=== PATIENT | male | born 1980 | race Caucasian/White ===

== ENCOUNTER 2021-04-10 08:00 | Outpatient (RCR) | payer OTHER, SELFPAY ==
--- NOTE | 2021-03-02 09:20 | HP.PTEVAL_ITS ---
Patient's Visit Information MALATHI COX is a 40 year old M referred to Physical Therapy by Dr. Tucker Denny MD with a diagnosis of R shoulder biceps tendinitis. Date of Evaluation: 02/27/21 Physical Therapist: Chicho Escobar DPT - Visit Plan Frequency: 1x/Week Duration: 4 Weeks Plan: Start with restoring non painful motion to full throughout. Add in scapular and scarlett scapular strengthening. Build HEP. Pt. to be seen x1 per week with focus on progressing HEP as tolerated. - Subjective Pt. is here today for his initial evaluation with diagnosis of R biceps tendonitis, R shoulder AC OA and shoulder impingement. Pt. reports having pain f or a few years, but has been progressively getting worse over the past 5-6 months. He reports no mech of injury, but does a lot of over head lifting, heavy at times and feels like the frequent over head activities has caused some of his symptoms. He reports no N/T. He does have pain at anterior bicep that does radiate down his arm and into his neck at times. He reports having pain after working for the day. He did get a recent injection last week with a marked amount of reduction in symptoms. He is hopeful to increase his tolerance to all of work and recreational activities. 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 He is to trial PT and if not better go back to physician. - Pain R anterior shoulder Pain Intensity (Out of 10): 2 Pain Intensity Range: 1, 9 - Objective POSTURE: Pt. has slight FH and slight anterior rotation shoulders. Normal shoulder heights. PALPATION: Pt. has tenderness at anterior biceps, and slight pain at at sub acromial space. NEURO: Pt. has normal sensation and normal DTR of bilateral UEs. ROM: LUE: elbow normal, full; shoulder: flexion 175deg, abd 175deg, functional ER C7, functional IR T10. RUE: elbow and wrist full no issues. Shoulder: flexion 170deg increased pain at ~90deg, abd 165deg increased pain at ~90deg of abd; functional ER C4 increase NW, functional IR L4 increase NW. MMT: LUE: 5/5 throughout; RUE: elbow- 5/5 throughout; shoulder- flexion 5- /5, abd 5-/5, ext 5/5, ER 4/5, IR 5-/5. Increased pain with all movements except ext. - Special Tests R Shoulder Drop Sign - IS Test: Negative R Shoulder Empty Can - SS: Positive R Shoulder Belly Press - SupScap: Negative R Shoulder Neer - Impingement: Positive R Shoulder Bashir Lewis - Impingement: Positive R Shoulder Biceps Load Test - Labrum: Positive R Shoulder Speeds Test - Labrum/Biceps: Positive - Balance/Special Test Scores Quick DASH Score: 47.7250 - Goals Goal 1:: LTG: Pt. to be I with HEP for shoulder ROM and scapular/scarlett scapular strengthening. Goal Time Frame: 4-6 Weeks Goal 2:: STG: pt. to have increased R shoulder ROM to full without increase in symptoms. Goal Time Frame: 2-4 Weeks Goal 3:: STG: Pt. to sleep throughout the night without increase in symptoms. Goal Time Frame: 2 Weeks Goal 4:: LTG: Pt. to have increased R shoulder strength to 5/5 throughout without increase in symptoms. Goal Time Frame: 4-6 Weeks - Rehabilitation Potential Physical Therapy Diagnosis: Pt. has signs and symptoms consistent R shoulder biceps tendinitis. He has subsequent hypomobility, weakness and pain. Pt. is doing better after injection, but would benefit from PT to restore full motion and add in scarlett scapular strengthening to reduce stress to biceps tendon. Rehabilitation Potential: Good - Anticipated Interventions Patient/Client Instruction: Educate patient on: Condition, Plan of Care, Risk Factors, Benefits of Fitness Program For the Purpose of:: To improve decision making, To facilitate caregiver knowledge, To improve self management, To prevent re-injury, To improve ability to perform tasks related to life management Therapeutic Exercise to Include: Power training, Body mechanics, Postural training, Passive ROM, Active ROM, Scapular Strength/Stabilization For the Purpose of:: To decrease pain, To increase ROM, To improve nutrient delivery to tissue, To increase oxygenation perfusion, To improve muscle performance and motor function, To improve ability to perform ADL's, To increase tolerance to activity/condition/position, To improve health of tissue, To decrease soft tissue restriction, To increase flexibility/ROM, To improve endurance Manual Therapy Techniques to Include: Mobilization, Passive ROM For the Purpose of:: To decrease pain, To decrease swelling/inflammation, To increase ROM IF ES: Yes Cryotherapy (ice pack, ice massage): Yes For the Purpose of:: To decrease pain, To decrease swelling/inflammation, To increase ROM, To improve nutrient delivery to tissue, To increase oxygenation perfusion Thank you for the opportunity to evaluate your patient. For Medicare and Medicare HMO plans, please review the plan of care and approve it. It will need to be FAXED BACK to us at [phone] for Medicare purposes. For Medicare only, by signing this I certify the plan of care. Please let me know if there are questions or concerns regarding this plan of care. Physician Signature: Date:
--- NOTE | 2021-04-10 09:16 | HP.PTREVAL_ITS ---
Dr. Tucker Denny MD, It has been my pleasure to treat MALATHI COX over the last 6 visits for R shoulder biceps tendinitis. Please see the progress note below for an update on the physical therapy plan of care! Subjective: Pt. reports I am having some better days, but I still have my bad ones.' He has been off work for about 6 days, (he has a 15 days on, 6 days off schedule) and has been doing a bit better. He reports being HEP compliant working on scapular, scarlett scapular and RTC strengthening. He reports being 40% better or so. Objective/Function: Pt. has good R shoulder ROM into flexion, abd, scaption. He does have increased active functional ER/IR motions (behind his back and head). Passively he had good motion. He presents with good strength today, R shoulder: flexion 5/5, abd 5-/5, ER 4+/5 increase NW, IR 4+/5, increase NW, ext 5/5. He is tender to palpation and anterior supra scapularis insertion and biceps tendon in groove. Her has increased symptoms with empty can and with speeds testing. No pain with Horn Blower's testing. He has been working ER strengthening, deltoid strengthening and scapular strengthening. He is still having pain after and during work. He is having difficulty sleeping as well. He is to follow up with his physician later this week to determine best course of action. He has made some mild gain, but is still having marked pain with most work and daily activities. Plan Plan: Pt. to follow up with physician to determine best course of action. He is to continue with HEP as given today. Balance/Gait/Functional tests - Balance/Special Test Scores Quick DASH Score: 43.1800 Goals Goal 1:: LTG: Pt. to be I with HEP for shoulder ROM and scapular/scarlett scapular strengthening. Goal Time Frame: 4-6 Weeks Goal Progress: Goal Met Goal 2:: STG: pt. to have increased R shoulder ROM to full without increase in symptoms. Goal Time Frame: 2-4 Weeks Goal Progress: Progressing Goal 3:: STG: Pt. to sleep throughout the night without increase in symptoms. Goal Time Frame: 2 Weeks Goal Progress: Not Progressing Goal 4:: LTG: Pt. to have increased R shoulder strength to 5/5 throughout without increase in symptoms. Goal Time Frame: 4-6 Weeks Goal Progress: Progressing Anticipated Interventions Patient/Client Instruction: Educate patient on: Condition, Plan of Care, Risk Factors, Benefits of Fitness Program For the Purpose of:: To improve decision making, To facilitate caregiver knowledge, To improve self management, To prevent re-injury, To improve ability to perform tasks related to life management Therapeutic Exercise to Include: Power training, Body mechanics, Postural t raining, Passive ROM, Active ROM, Scapular Strength/Stabilization For the Purpose of:: To decrease pain, To increase ROM, To improve nutrient delivery to tissue, To increase oxygenation perfusion, To improve muscle performance and motor function, To improve ability to perform ADL's, To increase tolerance to activity/condition/position, To improve health of tissue, To decre ase soft tissue restriction, To increase flexibility/ROM, To improve endurance Manual Therapy Techniques to Include: Mobilization, Passive ROM For the Purpose of:: To decrease pain, To decrease swelling/inflammation, To increase ROM IF ES: Yes Cryotherapy (ice pack, ice massage): Yes For the Purpose of:: To decrease pain, To decrease swelling/inflammation, To increase ROM, To improve nutrient delivery to tissue, To increase oxygenation perfusion Please do not hesitate to contact me at [phone] by phone or if you have questions or concerns regarding this new plan of care! Sincerely, Chicho Escobar DPT
== END 2021-04-10 19:00 | disposition home or self-care (01) ==
LOC: PT 08:00
PROVIDERS: Referring Provider Orthopaedic Surgery; Visit Provider Orthopaedic Surgery
DX: M75.21 Bicipital tendinitis, right shoulder (principal); M75.41 Impingement syndrome of right shoulder; M25.511 Pain in right shoulder; M19.011 Primary osteoarthritis, right shoulder
CPT/HCPCS: 97110; 97140; 97161; 97164

== ENCOUNTER 2021-08-09 05:00 | Emergency (ER) | payer OTHER, SELFPAY ==
[2021-08-09 05:01] VITALS: BP 140/91; PULSE 80; RESP 16; TEMP 36.3; O2SAT 99; BMI 30.1
--- NOTE | 2021-08-09 05:07 | CT_ITS ---
STUDY: CT ABDOMEN AND PELVIS WITHOUT CONTRAST REASON FOR EXAM: Male, 41 years old. Pain RADIATION DOSAGE (If Supplied By Facility): CTDIvol = ( 9.10 ) mGy, DLP = ( 550.42 ) mGycm TECHNIQUE: Transaxial 2.5 mm images were obtained from the dome of the diaphragm to the symphysis pubis without oral contrast, and without intravenous contrast. Sagittal and coronal images were reconstructed. This examination is limited for the evaluation of gastrointestinal, solid organs and vascular structures due to the lack of intravenous and oral contrast. Individualized dose optimization techniques were used for this CT. COMPARISON: None. FINDINGS: The visualized lung bases are unremarkable. The visualized portions of the heart are within normal limits. There is decreased attenuation of the liver consistent with steatosis. Normal gallbladder and extrahepatic biliary system. Normal spleen. Normal pancreas. Normal bilateral adrenal glands. Right greater than left perirenal stranding trace fluid. Minimal right proximal periureteral fluid with indistinct contour, remainder of the ureter is decompressed, there is minimal right caliectasis. The distal right ureter contains a tiny 1 -- 2 mm calculus approximately 1 cm superior to the UVJ. Normal visualized stomach. Normal small intestine. Normal colon. The appendix is visualized and appears normal. Minimal atherosclerosis of the distal abdominal aorta and proximal pelvic arteries.. Normal inferior vena cava. Normal retroperitoneum. Decompressed urinary bladder. Borderline sized prostate. There is a small umbilical and left inguinal hernia containing fat. Normal osseous structures. CT/Abdomen/Pelvis without Cont IMPRESSION: Tiny distal right ureteral calculus with minimal right caliectasis and indistinct proximal ureter. Bilateral perirenal stranding can be seen with acute or chronic renal pathology/previous inflammation or obstruction. Hepatic steatosis. There is no appendicitis, colitis, ascites, abscess, collection, perforation or obstruction. Electronically Signed: Kassandra Bueno MD at 5:49 EDT Reading Location ID and State: , Service support ,
--- NOTE | 2021-08-09 05:11 | EDS_ITS ---
HPI History of Present Illness Chief Complaint: Flank Pain Informant: patient and spouse/S.O. Narrative Narrative: Patient presents with right flank pain. About 2-1/2 days ago he had right posterior flank pain that was sharp. But it went away and has been good for couple days. Tonight he came back and has the right lower quadrant now. He has had some frequent urination and dark urine but no actual dysuria. When the pain was bad he has had nausea and dry heaves. Nothing really makes it better or worse. He has never had kidney stones but they do run in his family. Moving bowels has been normal. No fevers or chills. Of note, patient has allergy to codeine but it causes nausea only. He has had other pain meds without issues. PFSH PFSH Medical History no medical history Home Medications naproxen 500 mg tablet 500 mg PO BID #20 tabs 08/09/21 [Rx Last Taken Unknown] ondansetron 4 mg disintegrating tablet 4 mg PO Q8H PRN nausea and vomiting #10 tabs 08/09/21 [Rx Last Taken Unknown] oxycodone-acetaminophen 5 mg-325 mg tablet (Percocet) 1 tab PO Q6H PRN pain 3 days #10 tabs 08/09/21 [Rx Last Taken Unknown] tamsulosin 0.4 mg capsule (Flomax) 0.4 mg PO DAILY #7 caps 08/09/21 [Rx Last Taken Unknown] Allergy/AdvReac Type Severity Reaction Status Date / Time codeine Allergy Nausea Verified 08/09/21 05:06 Social History Smoking Status: Former smoker ROS ROS ED Constitutional Constitutional ED: Denies chills or fever(s) ENT ENT ED: Denies rhinorrhea or sore throat Cardiovascular Cardiovascular: Denies chest pain Respiratory/Chest Respiratory/Chest: Denies cough Gastrointestinal Gastrointestinal: Reports abdominal pain, nausea and vomiting; Denies constipation, diarrhea or melena Genitourinary Genitourinary ED: Reports hematuria and other Details: Dark urine, possibly hematuria. Musculoskeletal Musculoskeletal: Reports back pain Integumentary Denies rash Neurologic Neurologic: Denies paresthesias or weakness Allergic/Immunologic Allergic/Immunologic ED: Denies urticaria EXAM Physical Exam Const Vital Signs: 08/09/21 05:01 Temperature 97.4 F L Temperature Source Temporal Pulse Rate 80 Respiratory Rate 16 Blood Pressure 140/91 H Blood Pressure Mean 107 Pulse Ox 99 Oxygen Delivery Method Room Air Positive well nourished and well developed Constitutional Narrative: Patient is holding his right lower quadrant. He looks uncomfortable. General Appearance ED: well developed; Negative for diaphoretic or pallor HEENT Reports dry mucous membranes Mouth ED: Yes dry mucous membranes Mouth: dry mucous membranes Eyes General Eye ED: Negative for pale conjunctiva or scleral icterus Neck no JVD Chest Wall inspection of chest normal Resp normal respiratory effort and clear to auscultation bilaterally Cardio regular rate, regular rhythm and no murmurs GI normal to inspection, nondistended, normoactive bowel sounds, non-tender and non-distended GI Narrative: Despite the pain, he has no tenderness in his right lower quadrant or anywhere else. He has no CVA tenderness either. No mass. No hernia. Back/Spine no CVA tenderness Extremity normal to inspection Neuro Sensorium / Orientation: alert Psych mental status grossly normal Skin no rashes or lesions noted General Skin Exam: Negative for jaundice or pallor MDM MDM MDM Narrative Medical decision making narrative: Blood work shows normal CBC. Electrolytes are overall unremarkable other than a mild elevation of glucose. I discussed this with the patient that this needs to be rechecked. It might be caused by his pain and adrenaline release but he needs to have this followed for possible development of diabetes in the future. We also discussed mild weight loss exercise and diet. Urine showed red cells but no sign of infection. CT scan was consistent with a right distal ureteral stone. This is also consistent with his symptoms. Statistically, this stone should pass. I will get him home on nonsteroidals, narcotic pain meds, Flomax and Zofran for nausea. We discussed reasons to return. We also discussed straining urine and follow-up. Lab Data Attestation: I reviewed the patient's lab results. Labs: Laboratory Results - last 24 hr 08/09/21 08/09/21 08/09/21 05:05 05:05 05:05 WBC 10.2 RBC 4.73 Hgb 15.3 Hct 42.0 MCV 88.8 MCH 32.3 H MCHC 36.4 H RDW Std Deviation 39.6 RDW Coeff of Kiara 12.2 Plt Count 230 MPV 10.4 Immature Gran % (Auto) 0.400 Neut % (Auto) 73.5 H Lymph % (Auto) 18.9 L [place] % (Auto) 6.5 Eos % (Auto) 0.4 Baso % (Auto) 0.3 Absolute Neuts (auto) 7.5 Absolute Lymphs (auto) 1.93 Nucleated RBC % 0 Sodium 138 Potassium 3.8 Chloride 105 Carbon Dioxide 26.0 Anion Gap 7 BUN 18 Creatinine 1.22 Estim Creat Clear Calc 75.53 Est GFR (MDRD) Af Amer 83 Est GFR (MDRD) Non-Af 69 BUN/Creatinine Ratio 14.8 Glucose 165 H Calcium 9.2 Urine Color Yellow Urine Clarity Clear Urine pH 6.5 Ur Specific [place] 1.015 Urine Protein 15 H Urine Glucose (UA) Normal Urine Ketones Negative Urine Occult Blood 250 H Urine Nitrite Negative Urine Bilirubin Negative Urine Urobilinogen Normal Ur Leukocyte Esterase Negative Urine RBC 50-100 SEEN Urine WBC 0 SEEN Ur Squamous Epith Cells 0 SEEN Amorphous Sediment R Urine Bacteria 1+ Urine Mucus 0 SEEN Radiography Diagnostic Testing: Clinical Impression(s) from Imaging Studies Abdomen/Pelvis CT 08/09/21 05:07 IMPRESSION: Tiny distal right ureteral calculus with minimal right caliectasis and indistinct proximal ureter. Bilateral perirenal stranding can be seen with acute or chronic renal pathology/previous inflammation or obstruction. Hepatic steatosis. There is no appendicitis, colitis, ascites, abscess, collection, perforation or obstruction. Electronically Signed: Kassandra Bueno MD at 5:49 EDT Reading Location ID and State: , Service support , Discharge Plan Triage Chief Complaint: Flank Pain ED Provider: Dallas Braswell Dx/Rx/DC Orders Clinical Impression: Kidney stone on right side, Nausea & vomiting Instructions: ED Kidney Stone w/ Colic Prescriptions: New oxycodone-acetaminophen [Percocet] 5-325 mg tablet 1 tab PO Q6H PRN (Reason: pain) 3 Days Qty: 10 0RF naproxen 500 mg tablet 500 mg PO BID Qty: 20 0RF ondansetron 4 mg tablet,disintegrating 4 mg PO Q8H PRN (Reason: nausea and vomiting) Qty: 10 0RF tamsulosin [Flomax] 0.4 mg capsule 0.4 mg PO DAILY Qty: 7 0RF Primary Care Provider: Care Physician,No Primary Referrals: Zelalem España MD [STAFF PHYSICIAN] - 5-7 Days Care Physician,No Primary [Primary Care Provider] - Disposition Disposition: Home, Self Care
[2021-08-09] MEDS: 0.9% Normal Saline 1,000 ML 1000 ML IV (05:15)
[2021-08-09] MEDS: Ondansetron 4 MG/2 ML Vial IV (05:15)
[2021-08-09] MEDS: Ketorolac 15 MG/ML Vial IV (05:16)
[2021-08-09] MEDS: Morphine 4 MG/ML Syringe IV (05:17)
[2021-08-09 05:19] LABS: Mucous, Urine 0 SEEN /hpf (<or=2+); Squamous Epithelial Cells - UA 0 SEEN /hpf (0-5); White Blood Cells 0 SEEN /hpf (0-5)
[2021-08-09 05:20] LABS: Absolute Lymphocyte Count 1.93 X10^3/uL (0.83-4.51); Absolute Neutrophil Count 7.5 X10^3/uL (2.0-7.7); Basophil# 0.03 X10^3/uL; Basophil% 0.3 % (0-1); Eosinophil# 0.04 X10^3/uL; Eosinophils% 0.4 % (0-5); Hemoglobin 15.3 g/dL (13.0-16.5); Lymphocyte # 1.93 X10^3/ul (0.83-4.51); Lymphocyte % 18.9 % (19-41); Mean Corp Hgb Conc 36.4 g/dL (32-36); Mean Corpuscular Hgb 32.3 pg (27.0-32.0); Mean Corpuscular Volume 88.8 fL (80-94); Mean Platelet Vol. 10.4 fl (6.2-12.0); Monocyte# 0.66 X10^3/uL; Monocyte% 6.5 % (0-10); NRBC Flagged by Analyzer 0 % (0-5); Neutrophil # 7.51 X10^3/uL (2.7-7.7); Neutrophil % 73.5 % (47-70); Platelet Count 230 K/mm3 (150-450); RBC Distribution Width CV 12.2 % (11.6-14.6); RBC Distribution Width SD 39.6 fl (35.1-43.9); Red Blood Count 4.73 M/mm3 (4.6-6.2); White Blood Count 10.2 K/mm3 (4.4-11.0)
[2021-08-09 05:21] LABS: Color, Urine Yellow (Yellow); Glucose, Dipstick Normal (Normal); Ketone-Dipstick Negative (Negative); Leukocyte Esterase-Dipstick Negative /ul (Negative); Nitrite-Dipstick Negative (Negative); Occult Blood-Urine 250 /ul (Negative); Protein-Dipstick 15 mg/dl (Negative); Specific Gravity, Urine 1.015 (1.002-1.030); Urine Bilirubin Dipstick Negative (Negative); Urine Clarity Clear (Clear); Urine Urobilinogen Normal (Normal); Urine pH 6.5 (5.0 - 8.0)
[2021-08-09 05:40] LABS: Red Blood Cells-Urine 50-100 SEEN /hpf (0-5)
[2021-08-09 05:41] LABS: Amorphous Sediment R; Bacteria 1+ /hpf (None Seen)
[2021-08-09 05:55] LABS: Anion Gap 7 (5-15); BUN 18 mg/dL (7-18); BUN/Creat Ratio 14.8 RATIO (10-20); Calcium,Total 9.2 mg/dL (8.5-10.1); Chloride 105 mmol/L (98-107); Creatinine, Serum 1.22 mg/dL (0.70-1.30); EST Glomerular Filtration Rate 69 mL/min (>60); Est Glom Filt Rate - Afr Amer 83 mL/min (>60); Estimated Creatinine Clearance 75.53 ml/min; Glucose 165 mg/dL (74-106); Potassium 3.8 mmol/L (3.5-5.1); Sodium Level 138 mmol/L (136-145)
[2021-08-09 06:12] VITALS: BP 138/71; PULSE 78; RESP 16
== END 2021-08-09 06:13 | disposition home or self-care (01) ==
PROVIDERS: Emergency Provider Emergency Medicine; Visit Provider Emergency Medicine
DX: N20.0 Calculus of kidney (principal); R35.0 Frequency of micturition; R31.9 Hematuria, unspecified; R73.9 Hyperglycemia, unspecified; Z79.1 Long term (current) use of non-steroidal anti-inflammatories (NSAID); Z79.899 Other long term (current) drug therapy; Z87.891 Personal history of nicotine dependence
CPT/HCPCS: 74176; 80048; 81001; 85025; 96361; 96374; 96375; 99283; J7030; A4216; J2405

== ENCOUNTER 2023-08-09 19:17 | Emergency (ER) | payer OTHER, SELFPAY ==
[2023-08-09 19:18] VITALS: BP 152/125; PULSE 103; RESP 20; TEMP 35.7; O2SAT 97; BMI 29.7
--- NOTE | 2023-08-09 19:29 | CT_ITS ---
EXAM: CT ABDOMEN AND PELVIS WITHOUT INTRAVENOUS CONTRAST CLINICAL INDICATION: right flank pain TECHNIQUE: Helically acquired images were obtained of the abdomen and pelvis without intravenous contrast. CTDIvol = ( 8.28 ) mGy, DLP = ( 504.61 ) mGycm This CT exam was performed using one or more of the following dose reduction techniques: automated exposure control, adjustment of the mA and/or kV according to patient size, and/or use of iterative reconstruction technique. COMPARISON: No relevant prior studies available. FINDINGS: LOWER THORAX: Unremarkable. Lung bases are clear. No cardiomegaly. No significant pericardial effusion. ABDOMEN: LIVER: Hepatic steatosis. GALLBLADDER AND BILE DUCTS: Unremarkable. No calcified gallstones. No gallbladder distention or wall edema. No intra- or extrahepatic biliary ductal dilation. PANCREAS: Unremarkable. No focal cystic mass. SPLEEN: Unremarkable. Normal size without focal cystic or solid mass. ADRENALS: Unremarkable. No nodules. KIDNEYS AND URETERS: 4 mm calculus at the right distal ureter with mild upstream dilatation of the collecting system. Normal renal size and position. STOMACH AND BOWEL: Unremarkable. No stomach or bowel distention. No focal inflammatory change. PELVIS: APPENDIX: No evidence of acute appendicitis. BLADDER: Unremarkable. REPRODUCTIVE: Unremarkable as visualized. No mass. ABDOMEN and PELVIS: INTRAPERITONEAL SPACE: Unremarkable. No ascites or other fluid collection. No free air. BONES/JOINTS: Unremarkable. No suspicious lytic or blastic abnormality. SOFT TISSUES: Small fat-containing left inguinal hernia. VASCULATURE: Unremarkable. Abdominal aorta is non-dilated. LYMPH NODES: Unremarkable. No enlarged lymph nodes. CT/Abdomen/Pelvis without Cont IMPRESSION: 1. 4 mm calculus at the right distal ureter with mild upstream dilatation of the collecting system. 2. No acute disease otherwise. Electronically Signed: Hector Novak MD at 21:46 EDT ,
--- NOTE | 2023-08-09 19:32 | EX.ED.DYSGE1 ---
HPI <SHERIN Mendoza - Last Filed: 08/09/23 21:58> History of Present Illness Chief Complaint: Flank Pain Narrative Narrative: 43-year-old male developed right flank pain 4 days ago that has been radiating around to the right lower abdomen. He had nausea and dry heaving. In the morning he urinates a normal amount but then it slowly decreases throughout the day. He occasionally had burning with urination so his gave him Pyridium and now his urine looks dark. He had a kidney stone 1 year ago and states this feels somewhat similar but worse. He denies fever or chills. No abdominal surgical history. PFSH <SHERIN Mendoza - Last Filed: 08/09/23 21:58> [facility] Medical History (Updated 08/09/23 @ 21:10 by SHERIN Mendoza) History of torsion of testis Kidney stones Former smoker Migraines Home Medications ?Medication ?Instructions ?Recorded ?Last Taken ?Type cephalexin 500 mg capsule 500 mg PO Q6 7 days #28 CAPSULES 08/09/23 Unknown Rx hydrocodone-acetaminophen 5-325mg 1 tab PO Q6H PRN PRN Pain 3 days 08/09/23 Unknown Rx 5mg-325mg #12 TABLETS ondansetron 4 mg disintegrating 4 mg PO Q8H PRN PRN Nausea #12 tabs 08/09/23 Unknown Rx tablet tamsulosin 0.4 mg capsule (Flomax) 0.4 mg PO DAILY 14 days #14 caps 08/09/23 Unknown Rx Allergy/AdvReac Type Severity Reaction Status Date / Time codeine Allergy Nausea Verified 08/09/23 19:18 Surgical History (Updated 08/09/23 @ 19:59 by Shaye Denny) H/O left wrist surgery Social History Smoking Status: Former smoker ROS <SHERIN Mendoza - Last Filed: 08/09/23 21:58> ROS ED ROS Narrative Constitutional: Negative for fever, chills, malaise. CVS: Negative for chest pain. Respiratory: Negative for shortness of breath. GI: Positive for abdominal pain, nausea. No vomiting. : Positive for dysuria. EXAM <SHERIN Mendoza - Last Filed: 08/09/23 21:58> Physical Exam Narrative Exam Narrative: CONST: Patient sitting in no acute distress. EYES: Normal inspection. NECK: Normal inspection. RESP: No respiratory distress, CTAB. CVS: Regular rate and rhythm, no murmur, no gallop. ABD: Soft with mild right lower quadrant tenderness, no guarding or rebound, nondistended, no hepatosplenomegaly. SKIN: Color normal, no rash, warm, dry, intact. EXTREMITIES: Normal appearance, no pedal edema. NEURO: Alert and answering questions appropriately. PSYCH: Normal affect. Const Vital Signs: 08/09/23 19:18 08/09/23 21:17 Temperature 96.2 F L Temperature Source Temporal Pulse Rate 103 H 78 Respiratory Rate 20 H 16 Blood Pressure 152/125 H 117/74 Blood Pressure Mean 134 88 Pulse Ox 97 97 Oxygen Delivery Method Room Air Room Air <Dr. Salome Cedillo DO - Last Filed: 08/14/23 08:56> Physical Exam Const Vital Signs: 08/09/23 19:18 08/09/23 21:17 Temperature 96.2 F L Temperature Source Temporal Pulse Rate 103 H 78 Respiratory Rate 20 H 16 Blood Pressure 152/125 H 117/74 Blood Pressure Mean 134 88 Pulse Ox 97 97 Oxygen Delivery Method Room Air Room Air MDM <SHERIN Mendoza - Last Filed: 08/09/23 21:58> [facility] Narrative Medical decision making narrative: Patient has 4 days of right flank pain with a history of kidney stones. He appears uncomfortable but nontoxic. He was initially hypertensive and mildly tachycardic from 100, otherwise stable vital signs. He is tender in the right lower abdomen and right flank. Labs show normal white count 10.5, normal electrolytes, BUN 24, creatinine 1.81 (previously ) consistent with LAQUITA. Urinalysis has blood is nitrate positive but no bacteria and was cultured. CT shows 4 mm stone at right distal ureter with mild ureteral nephrosis. Patient feels improved after IV fluids, Zofran, morphine and Toradol. The size stone should pass without intervention. Low he has mild LAQUITA think he is appropriate for outpatient management and he is tolerating p.o. intake. I discussed he should avoid NSAIDs. He prefers to go home and I prescribed Percocet, Zofran, Flomax and Keflex since the urine had nitrates. Return precautions discussed and he was discharged in stable condition. Lab Data Attestation: I reviewed the patient's lab results. Labs: Laboratory Results - last 24 hr 08/09/23 08/09/23 19:30 20:06 WBC 10.5 RBC 4.90 Hgb 15.6 Hct 44.1 MCV 90.0 MCH 31.8 MCHC 35.4 RDW Std Deviation 39.4 RDW Coeff of Kiara 12.1 Plt Count 292 MPV 10.5 Immature Gran % (Auto) 0.300 Neut % (Auto) 75.8 H Lymph % (Auto) 15.8 L Rusk % (Auto) 7.4 Eos % (Auto) 0.3 Baso % (Auto) 0.4 Absolute Neuts (auto) 8.0 H Absolute Lymphs (auto) 1.66 Nucleated RBC % 0 Sodium 138 Potassium 3.6 Chloride 103 Carbon Dioxide 29.0 Anion Gap 6 BUN 24 H Creatinine 1.81 H Estim Creat Clear Calc 55.81 Est GFR (MDRD) Af Amer 52 L Est GFR (MDRD) Non-Af 43 L BUN/Creatinine Ratio 13.3 Glucose 120 H Calcium 9.5 Urine Color DARK YELLOW Urine Clarity Sl. Cloudy Urine pH 5.0 Ur Specific Henry 1.025 Urine Protein 30 H Urine Glucose (UA) Normal Urine Ketones Negative Urine Occult Blood 250 H Urine Nitrite Positive H Urine Bilirubin 3 H Urine Urobilinogen 8 H Ur Leukocyte Esterase Negative Urine RBC > 100 SEEN Urine WBC 0 SEEN Ur Squamous Epith Cells 0 SEEN Urine Bacteria 0 SEEN Urine Mucus 0 SEEN Radiography Diagnostic Testing: Clinical Impression(s) from Imaging Studies Abdomen/Pelvis CT 08/09/23 19:29 IMPRESSION: 1. 4 mm calculus at the right distal ureter with mild upstream dilatation of the collecting system. 2. No acute disease otherwise. Electronically Signed: Hector Novak MD at 21:46 EDT , <Dr. Salome Cedillo, DO - Last Filed: 08/14/23 08:56> [facility] Narrative Medical decision making narrative: Patient has 4 days of right flank pain with a history of kidney stones. He appears uncomfortable but nontoxic. He was initially hypertensive and mildly tachycardic from 100, otherwise stable vital signs. He is tender in the right lower abdomen and right flank. Labs show normal white count 10.5, normal electrolytes, BUN 24, creatinine 1.81 (previously 18/1.22) consistent with LAQUITA. Urinalysis has blood is nitrate positive but no bacteria and was cultured. CT shows 4 mm stone at right distal ureter with mild ureteral nephrosis. Patient feels improved after IV fluids, Zofran, morphine and Toradol. The size stone should pass without intervention. Low he has mild LAQUITA think he is appropriate for outpatient management and he is tolerating p.o. intake. I discussed he should avoid NSAIDs. He prefers to go home and I prescribed Percocet, Zofran, Flomax and Keflex since the urine had nitrates. Return precautions discussed and he was discharged in stable condition. I have personally performed a face to face assessment of the patient and have reviewed the JOSEPH Note. I performed a substantive portion of the visit including all aspects of the following. My murphy findings include: History is Patient is a 43-year-old male with history of kidney stone presenting with 4 days of right flank pain, dysuria and darker urine. Patient is quite uncomfortable upon arrival. Does not report any fever. Patient does not have a leukocytosis. Lower suspicion for infection. Does have a mild elevation of his creatinine of 1.81 but is given IV fluids. Urinalysis does show positive nitrites but is more consistent with infection. This could be dehydration related. Will send for culture and start patient apparently on Keflex. CT shows a 4 mm calculus of the right distal ureter with mild upstream dilation of the collecting system. This stone should pass on its own. Patient has good pain control. Did discuss admission for IV fluids and pain control as well as inpatient urology consult. Will discharge home with Zofran, Flomax and Percocet for further pain control. Given return precautions. Other additions or changes: [None] Lab Data Labs: Laboratory Results - last 24 hr 08/09/23 08/09/23 19:30 20:06 WBC 10.5 RBC 4.90 Hgb 15.6 Hct 44.1 MCV 90.0 MCH 31.8 MCHC 35.4 RDW Std Deviation 39.4 RDW Coeff of Kiara 12.1 Plt Count 292 MPV 10.5 Immature Gran % (Auto) 0.300 Neut % (Auto) 75.8 H Lymph % (Auto) 15.8 L Rusk % (Auto) 7.4 Eos % (Auto) 0.3 Baso % (Auto) 0.4 Absolute Neuts (auto) 8.0 H Absolute Lymphs (auto) 1.66 Nucleated RBC % 0 Sodium 138 Potassium 3.6 Chloride 103 Carbon Dioxide 29.0 Anion Gap 6 BUN 24 H Creatinine 1.81 H Estim Creat Clear Calc 55.81 Est GFR (MDRD) Af Amer 52 L Est GFR (MDRD) Non-Af 43 L BUN/Creatinine Ratio 13.3 Glucose 120 H Calcium 9.5 Urine Color DARK YELLOW Urine Clarity Sl. Cloudy Urine pH 5.0 Ur Specific Henry 1.025 Urine Protein 30 H Urine Glucose (UA) Normal Urine Ketones Negative Urine Occult Blood 250 H Urine Nitrite Positive H Urine Bilirubin 3 H Urine Urobilinogen 8 H Ur Leukocyte Esterase Negative Urine RBC > 100 SEEN Urine WBC 0 SEEN Ur Squamous Epith Cells 0 SEEN Urine Bacteria 0 SEEN Urine Mucus 0 SEEN Radiography Diagnostic Testing: Clinical Impression(s) from Imaging Studies Abdomen/Pelvis CT 08/09/23 19:29 IMPRESSION: 1. 4 mm calculus at the right distal ureter with mild upstream dilatation of the collecting system. 2. No acute disease otherwise. Electronically Signed: Hector Novak MD at 21:46 EDT , Discharge Plan Triage Chief Complaint: Flank Pain ED Midlevel Provider: Saundra Disla ED Provider: Salome Cedillo Dx/Rx/DC Orders Clinical Impression: Kidney stone on right side, LAQUITA (acute kidney injury) Instructions: ED Kidney Stone with Pain Prescriptions: New ondansetron 4 mg tablet,disintegrating 4 mg PO Q8H PRN PRN (Reason: Nausea) Qty: 12 0RF tamsulosin [Flomax] 0.4 mg capsule 0.4 mg PO DAILY 14 Days Qty: 14 0RF hydrocodone-acetaminophen 5-325 mg tablet 1 tab PO Q6H PRN PRN (Reason: Pain) 3 Days Qty: 12 0RF cephalexin 500 mg capsule 500 mg PO Q6 7 Days Qty: 28 0RF Primary Care Provider: Care Physician,Yael Primary Referrals: Care Physician,No Primary [Primary Care Provider] - Activity Restrictions/Additional Instructions: There is a 4 mm kidney stone on the right side in the lower ureter before the bladder. The size stone should pass on its own. Take the prescribed medications. Avoid taking ibuprofen/Aleve as this could worsen your kidney function. Return if symptoms worsen such as fever, inadequate pain control, or inability to urinate. Print Language: [place] Citizen Disposition Disposition: Home, Self Care Discharge Date/Time: 08/09/23 22:08
[2023-08-09] MEDS: 0.9% Normal Saline (1000mL) 1,000 ML 999 ML IV (19:50)
[2023-08-09] MEDS: Ketorolac 30 MG/ML Syringe IV (19:54)
[2023-08-09] MEDS: Ondansetron 4 MG/2 ML Vial IV (19:54)
[2023-08-09] MEDS: Morphine 4 MG/ML Syringe IV (19:55)
[2023-08-09 20:01] LABS: Anion Gap 6 (5-15); BUN 24 mg/dL (7-18); BUN/Creat Ratio 13.3 RATIO (10-20); Calcium,Total 9.5 mg/dL (8.5-10.1); Chloride 103 mmol/L (98-107); Creatinine, Serum 1.81 mg/dL (0.70-1.30); EST Glomerular Filtration Rate 43 mL/min (>60); Est Glom Filt Rate - Afr Amer 52 mL/min (>60); Estimated Creatinine Clearance 55.81 ml/min; Glucose 120 mg/dL (74-106); Potassium 3.6 mmol/L (3.5-5.1); Sodium Level 138 mmol/L (136-145)
[2023-08-09 20:03] LABS: Absolute Lymphocyte Count 1.66 X10^3/uL (0.83-4.51); Basophil# 0.04 X10^3/uL; Basophil% 0.4 % (0-1); Eosinophil# 0.03 X10^3/uL; Eosinophils% 0.3 % (0-5); Hematocrit 44.1 % (40-54); Hemoglobin 15.6 g/dL (13.0-16.5); Lymphocyte # 1.66 X10^3/ul (0.83-4.51); Lymphocyte % 15.8 % (19-41); Mean Corp Hgb Conc 35.4 g/dL (32-36); Mean Corpuscular Hgb 31.8 pg (27.0-32.0); Mean Platelet Vol. 10.5 fl (6.2-12.0); Monocyte# 0.78 X10^3/uL; Monocyte% 7.4 % (0-10); NRBC Flagged by Analyzer 0 % (0-5); Neutrophil # 7.96 X10^3/uL (2.7-7.7); Neutrophil % 75.8 % (47-70); Platelet Count 292 K/mm3 (150-450); RBC Distribution Width CV 12.1 % (11.6-14.6); RBC Distribution Width SD 39.4 fl (35.1-43.9); White Blood Count 10.5 K/mm3 (4.4-11.0)
[2023-08-09 20:11] LABS: Bacteria 0 SEEN /hpf (None Seen); Mucous, Urine 0 SEEN /hpf (<or=2+); Squamous Epithelial Cells - UA 0 SEEN /hpf (0-5); White Blood Cells 0 SEEN /hpf (0-5)
[2023-08-09 20:25] LABS: Glucose, Dipstick Normal (Normal); Ketone-Dipstick Negative (Negative); Leukocyte Esterase-Dipstick Negative /ul (Negative); Nitrite-Dipstick Positive (Negative); Occult Blood-Urine 250 /ul (Negative); Protein-Dipstick 30 mg/dl (Negative); Specific Gravity, Urine 1.025 (1.002-1.030); Urine Clarity Sl. Cloudy (Clear); Urine Urobilinogen 8 mg/dl (Normal)
[2023-08-09 20:33] LABS: Color, Urine DARK YELLOW (Yellow); Urine Bilirubin Dipstick 3 mg/dL (Negative)
[2023-08-09 20:34] LABS: Red Blood Cells-Urine > 100 SEEN /hpf (0-5)
[2023-08-09 21:17] VITALS: BP 117/74; PULSE 78; RESP 16; O2SAT 97
[2023-08-09] MEDS: HYDROcodone Bitartrate/Apap 5/325 Tablet PO (22:04)
[2023-08-09 22:07] VITALS: BP 115/75; PULSE 72; RESP 18; TEMP 36.9; O2SAT 99
== END 2023-08-09 22:08 | disposition home or self-care (01) ==
PROVIDERS: Physician Assistant; Emergency Provider Emergency Medicine; Visit Provider Emergency Medicine
DX: N20.2 Calculus of kidney with calculus of ureter (principal); N17.9 Acute kidney failure, unspecified; Z87.891 Personal history of nicotine dependence; Z87.442 Personal history of urinary calculi
CPT/HCPCS: 74176; 80048; 81001; 85025; 87086; 96361; 96374; 96375; 99282; J7030; A4216; J2405

== ENCOUNTER 2023-12-20 16:33 | Emergency (ER) | payer OTHER, SELFPAY ==
[2023-12-20 16:33] VITALS: BP 174/97; PULSE 93; RESP 16; TEMP 36.6; O2SAT 98; BMI 29.9
[2023-12-20] MEDS: HYDROcodone Bitartrate/Apap 5/325 Tablet PO (18:35)
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
== END 2023-12-20 19:21 | disposition home or self-care (01) ==
PROVIDERS: Emergency Provider Emergency Medicine; Visit Provider Emergency Medicine
DX: T22.211A Burn of second degree of right forearm, initial encounter (principal); Z87.891 Personal history of nicotine dependence; T23.261A Burn of second degree of back of right hand, initial encounter; X04.XXXA Exposure to ignition of highly flammable material, initial encounter
CPT/HCPCS: 99282